=== PATIENT | female | born 1975 | race Caucasian/White ===

== ENCOUNTER 2016-11-18 23:14 | Emergency (ER) | payer SELFPAY ==
[2016-11-19] MEDS ORDERED: Albuterol Sulfate 2.5 mg/0.5 ml Neb ONE ×4 (00:24→07:23)
[2016-11-19] MEDS ORDERED: methylPREDNISolone Sod Succ/PF 125 MG/2 ML VIAL ONE (01:52)
[2016-11-19] MEDS ORDERED: Water For Inject, Bacteriostat 0 ML ONE (01:53)
[2016-11-19] MEDS ORDERED: Water For Inject, Bacteriostat 30 ML ONE (01:54)
[2016-11-19 02:30] LABS: Band 28 % (5-11); Hematocrit 41.2 % (36.0-47.0); Mean Platelet Volume 8.7 fL (7.4-10.4); Neutrophil 58 % (42-75); Red Blood Cell (RBC) Count 4.81 mill/uL (4.20-5.40); White Blood Cell (WBC) Count 21.4 thou/uL (4.8-10.8)
[2016-11-19 02:32] LABS: ALT (SGPT) 22 U/L (0-55); AST (SGOT) 24 U/L (5-34); Alkaline Phosphatase 48 U/L (40-150); Anion Gap 16 mmol/L (10-20); BUN (Urea Nitrogen) 10 mg/dL (7.0-18.7); Bilirubin, Total 0.4 mg/dL (0.2-1.2); Calc. Creatinine Clearance 0 mL/min (70-130); Calcium 9.7 mg/dL (7.8-10.44); Carbon Dioxide 19 mmol/L (22-29); Chloride 110 mmol/L (98-107); Estimated GFR-MDRD 73; Globulin 3.2 g/dL (2.4-3.5); Protein, Total 7.7 g/dL (6.0-8.3)
[2016-11-19] MEDS ORDERED: Sodium Chloride For Inhalation 0.9% 3 ML NEB ONE (07:23)
--- NOTE | 2016-11-19 08:46 | RAD ---
2 VIEW CHEST: Date: 11/19/16 No prior comparison. INDICATION: Dyspnea. History of asthma. FINDINGS: Mild linear left basilar opacity is present. Lungs are otherwise clear. No effusion or pneumothorax. Cardiac silhouette is within normal limits of size. There is linear density along the left hilar re gion which may be accentuation of mediastinal structures by patient rotation. Mild degenerative lott ge of osseous structures. Otherwise no acute process. IMPRESSION: 1. Left basilar opacity likely related to atelectasis. 2. Linear density along the left paramediastinal/hilar region may reflect accentuation of mediastin al structures due to slight patient rotation. This could be further assessed with follow-up well pos itioned frontal chest radiograph. POS: [facility]
== END 2016-11-19 10:35 | disposition short-term general hospital (02) ==
LOC: NAV ERS 23:14
DX: J45.909 Unspecified asthma, uncomplicated (principal); Z79.899 Other long term (current) drug therapy
CPT/HCPCS: 71020; 80053; 85025; 94640; 94644; 96374; J2930; J7611; J7620